=== PATIENT | female | born 1945 | race Caucasian/White ===

== ENCOUNTER 2021-10-04 13:36 | Outpatient (CLI) | payer MEDICARE, BC, SELFPAY | END 2021-10-04 13:37 | disposition home or self-care (01) | LOC: WOUND 13:58 | PROVIDERS: Visit Provider Surgery | DX: I73.9 Peripheral vascular disease, unspecified (principal); L97.522 Non-pressure chronic ulcer of other part of left foot with fat layer exposed; E11.9 Type 2 diabetes mellitus without complications; I10 Essential (primary) hypertension; Z87.891 Personal history of nicotine dependence | CPT/HCPCS: 11042; 99212 ==

== ENCOUNTER 2021-10-11 14:03 | Outpatient (CLI) | payer MEDICARE, BC, SELFPAY | END 2021-10-11 14:04 | disposition home or self-care (01) | LOC: WOUND 14:04 | PROVIDERS: Visit Provider Surgery | DX: T81.89XA Other complications of procedures, not elsewhere classified, initial encounter (principal); Y83.8 Other surgical procedures as the cause of abnormal reaction of the patient, or of later complication, without mention of misadventure at the time of the procedure; E11.9 Type 2 diabetes mellitus without complications; Z89.612 Acquired absence of left leg above knee; Z87.891 Personal history of nicotine dependence | CPT/HCPCS: 11042; A6220 ==

== ENCOUNTER 2021-10-25 13:05 | Outpatient (RCR) | payer MEDICARE, BC, SELFPAY | END 2021-10-28 23:59 | disposition home or self-care (01) | LOC: WOUND 13:05 | PROVIDERS: Visit Provider Surgery | DX: Z09 Encounter for follow-up examination after completed treatment for conditions other than malignant neoplasm (principal); E11.9 Type 2 diabetes mellitus without complications; I10 Essential (primary) hypertension; Z87.891 Personal history of nicotine dependence | CPT/HCPCS: 99212 ==